=== PATIENT | female | born 1960 | race Caucasian/White ===

== ENCOUNTER 2021-07-27 09:04 | Emergency (ER) | payer OTHER, SELFPAY ==
[2021-07-27] VITALS (44 sets, daily range): BP systolic 100–141; BP diastolic 48–126; PULSE 55–102; RESP 4–23; TEMP 36; O2SAT 97–100
--- NOTE | 2021-07-27 09:15 | RT.EKG_ITS ---
APPROVED REPORT Exam: Resting ECG Reason for Exam: CHEST PAIN Patient Location: E HR:63 bpm ECG Measurements Heart Rate 63 AXIS IN 116 P 42 QRSd 89 QRS 78 QT 395 T 51 QTc 403 Conclusion Sinus rhythm...normal P axis, V-rate 60- 99 sinus rhtyhm, normal axis, normal intervals, non ischemic
[2021-07-27 09:50] LABS: Abs Immature Grans 0.02 10^3/uL (0.0-0.06); Absolute Basophil Count 0.04 10^3/uL (0.0-0.2); Absolute Eosinophil Count 0.03 10^3/uL (0.0-0.7); Absolute Lymphocyte Count 1.45 10^3/uL (1.2-3.4); Absolute Neutrophil Count 4.99 10^3/uL (1.2-6.7); Basophils % 0.6; Eosinophils % 0.4; HCT 41.2 % (36.0-46.0); HGB 14.2 g/dL (11.2-15.7); Immature Grans % 0.3; Lymphocytes % 20.9; MCH 29.8 pg (27.0-33.0); MCHC 34.5 % (32.0-36.0); MCV 87 fL (80-95); MPV 10.3 fL (8.0-11.0); Monocytes % 5.8; Platelet Count 243 10^3/uL (130-400); RBC 4.76 10^6/uL (3.93-5.22); RDW 12.6 % (11.7-14.6); RDW-SD 39.9 fL; WBC 6.93 10^3/uL (4.4-10.8)
--- NOTE | 2021-07-27 10:01 | ED.GENADUL_ITS ---
Discharge Plan Disposition Patient Disposition: HOME Condition: Improving Discharge Details Clinical Impression: Acute left-sided thoracic back pain Primary Care Provider: Lupe Iglesias ED Provider: Gurmeet Morales Home Meds and New Rx's Prescriptions: New diclofenac sodium 3 % gel 1 applic topical BID PRN (Reason: pain) Qty: 100 1RF Discharge Instructions Instructions: Back Pain (ED) Additional Instructions: If you have any new or significant worsening of symptoms please feel free to return to the emergency department for reassessment and further evaluation. You may use acetaminophen [id number] just take as instructed on packaging. You may also consider use of lidocaine cream. If not improving in the next week please follow-up with your primary care provider for reassessment. Referrals: Lupe Iglesias [Primary Care Provider] - (As needed for reassessment or if not improving) Discharge Data Discharge Date/Time-TO BE ENTERED AT DEPARTURE: 07/27/21 14:27 Medical Decision Making Patient presenting to the emergency department for chief complaint of back and c hest discomfort. She states that pain is most Gurvinder underneath her left shoulder blade and radiates around to the anterior aspect of the left chest. Patient denies any injury or trauma, reproducible pain, fever chills, cough or shortness of breath. Patient does state significant family history of [place] but denies any personal history. Patient does state history of gastric sleeve and has had poor diet recently causing some heartburn and GERD but this has not been treated by her normal medications or as needed Tums. Physical exam is unremarkable for any reproducible pain, no signs of rash or zoster, no pain with palpation of the thorax, normal cardiac and respiratory exam. We will plan on performing standard cardiac work-up including troponins, EKG, D-dimer, and chest x-ray. Please see physician interpretation for review of EKG but patient is in sinus rhythm with a rate of 63 and per my evaluation shows no acute signs of ischemia. Review of labs show a normal CBC, slightly low potassium at 3.3 so we will give oral potassium, otherwise nondiagnostic CMP, initial troponin undetectable. Patient reassessed and did state some reproducible neck pain. Patient did have discomfort with palpation of the trapezius muscle of the left side, we will still plan on checking second troponin but will plan on giving Toradol and lidocaine patch to see if this helps. Second troponin is negative and patient reassessed and does state not full resolution but improvement of symptoms. Suspect occult musculoskeletal tissue to the left posterior thorax. Encouraged continued use of NSAIDs and following up with primary care provider for reassessment. Did discuss with patient further cardiac testing as needed such as outpatient stress test or return to the emergency department for any new or significant worsening of symptoms. Given chest and back pain did discuss with patient CTA imaging but at this time I have low suspicion for aortic aneurysm given that patient's blood pressure is well within normal limits, normal chest x-ray, negative D-dimer, no significant cardiac history or genetic abnormality that would be concerning for this.This patient was evaluated during a time of global shortage of iodinated contrast media. Based on guidance from the [employer], best practices, and local institutional approaches an alternative path for evaluating and managing the patient may have been employed in order to provide optimal care during this shortage. The current situation has been discussed with the patient. After discussion of diagnosis and plan of care patient has no further needs, questions, or concerns and states clear understanding to return to the emergency department for any worsening symptoms. This documentation was generated using [employer] dictation system, please disregard any oddities of phrase or misspellings. Imaging Data Radiologic Study: Radiologist's impression: MEDIASTINUM: Normal. HEART: Normal. PULMONARY VASCULATURE: Normal. LUNGS: Clear. PLEURAL SPACE: No pleural effusion or pneumothorax. BONE:Within normal limits for the patient's age. OTHER FINDINGS:Normal. IMPRESSION: No acute pulmonary findings. Lab Data Lab results reviewed: Yes I reviewed the patient's lab results. HPI General Mode of arrival: ambulatory . Date/Time Provider Initiated Documentation: 07/27/21 09:12 . Limitations to Documentation: no limitations . Information obtained by: patient . History of Present Illness 60 year old F presents to the emergency department with the chief complaint of Ches/back pain, described as moderate, with intensity rated at 6. Quality is described as burning and aching, and is localized to the back. Patient reports radiation to (chest). Patient started experiencing this day(s) (2) and it has been constant. No relieving factors improve symptom(s), No exacerbating factors reported . Patient notes no other symptoms.. Patient did receive the following treatments prior to arrival, NSAID and other (tums) Related Data Home Medications Medication Instructions Recorded Confirmed diclofenac sodium 3 % topical gel 1 applic topical BID PRN pain #100 06/10/22 grams Previous Rx's Medication Instructions Recorded diclofenac sodium 3 % topical gel 1 applic topical BID PRN pain #100 07/27/21 grams General Stated Complaint: Chest Pain ANGEL LUIS: 3 Review of Systems Constitutional Constitutional: Denies chills, Denies fever(s) and Denies malaise Cardiovascular Cardiovascular: Reports as per HPI, Reports chest pain, Denies chest pain with activity, Denies syncope, Denies irregular heart rhythm, Denies palpitations and Denies dyspnea Respiratory Respiratory: Denies cough, Denies hemoptysis and Denies dyspnea Gastrointestinal Gastrointestinal: Denies abdominal pain, Denies nausea and Denies vomiting Musculoskeletal Musculoskeletal: Reports back pain (left shoulder blade) Neurologic Neurologic: Denies syncope Psychiatric Psychiatric: Denies anxiety Endocrine Endocrine: Denies cold intolerance, Denies heat intolerance and Denies palpitat ions PFSH All Active Problems (Updated 07/27/21 @ 14:08 by Gurmeet Morales NP) Acute left-sided thoracic back pain (Acute) Social History Smoking/Tobacco Use Status: Never Smoking risk assessment performed?: Yes Alcohol Intake: never Drug use: Rarely Substance use type: does not use Do you feel safe at home: Yes Do you feel safe in your relationship?: Yes Exam Const General: cooperative, healthy appearing, comfortable, no acute distress, not diaphoretic and not ill appearing Nutritional Appearance: average body habitus Orientation: alert, awake and oriented x3 Limitations: mental status not altered Neck Neck: normal visual inspection, full ROM, trachea midline, supple and no anterior neck swelling Thyroid: thyroid normal Carotids: normal carotid upstroke and no bruits Chest Chest: normal inspection of the chest Resp Effort & Inspection: normal respiratory effort and able to speak in complete sentences Auscultation: clear to auscultation bilaterally Cardio Jugular venous pressure: no JVD Palpation: normal PMI Rate: regular rate Rhythm: regular rhythm Heart Sounds: S1 normal, S2 normal, no click, no gallops, no murmurs and no rubs Bruits: no abdominal aortic bruits and no carotid bruits Pulses: radial pulses present bilaterally 2+ GI Inspection: normal to inspection Palpation: soft, no aortic enlargement, no pulsatile masses and nontender Auscultation: normal bowel sounds Back/Spine/Pelvis Thoracic/Lumbar Spine: No paraspinal tenderness and No thoracic spinal tenderness Skin General skin exam: no rashes or lesions noted Neuro General: patient alert, patient awake, patient oriented x3, tone normal and moves all extremities Course Vital Signs Vital signs: Vital Signs Temperature 36 C L 07/27/21 09:10 Pulse 67 07/27/21 09:10 Respiratory Rate 18 07/27/21 09:10 Blood Pressure 123/76 07/27/21 09:10 Pulse Oximetry 99 07/27/21 09:10 Temperature 36 C L 07/27/21 09:10 Temperature Source Temporal Artery Scan 07/27/21 09:10 Pulse 67 07/27/21 09:10 Respiratory Rate 18 07/27/21 09:10 Blood Pressure 123/76 07/27/21 09:10 Blood Pressure Position Sitting 07/27/21 09:10 Pulse Oximetry 99 07/27/21 09:10 Oxygen Delivery Method Room Air 07/27/21 09:10 Oxygen Flow Rate 0 07/27/21 09:10 Lab/Test Results Lab/Test Results: Laboratory Tests Range/Units 07/27/21 09:35 WBC (4.4-10.8) 10^3/uL 6.93 RBC (3.93-5.22) 10^6/uL 4.76 Hgb (11.2-15.7) g/dL 14.2 Hct (36.0-46.0) % 41.2 MCV (80-95) fL 87 MCH (27.0-33.0) pg 29.8 MCHC (32.0-36.0) % 34.5 RDW (11.7-14.6) % 12.6 Plt Count (130-400) 10^3/uL 243 MPV (8.0-11.0) fL 10.3 Immature Gran % 0.3 Neutrophils % 72.0 Lymphocytes % 20.9 Monocytes % 5.8 Eosinophils % 0.4 Basophils % 0.6 Nucleated RBC % (0.0-0.3) % 0.0 Absolute Neutrophils (1.2-6.7) 10^3/uL 4.99 Absolute Lymphocytes (1.2-3.4) 10^3/uL 1.45 Absolute Monocytes (0.1-0.8) 10^3/uL 0.40 Absolute Eosinophils (0.0-0.7) 10^3/uL 0.03 Absolute Basophils (0.0-0.2) 10^3/uL 0.04
[2021-07-27 10:03] LABS: ALT 19 U/L (14-59); AST 12 U/L (15-37); Alkaline Phosphatase 90 U/L (46-116); Anion Gap 8.2 mmol/L (3-11); BUN 13 mg/dL (7-18); Bilirubin, Total 0.6 mg/dL (0.2-1.0); CO2 30.8 mmol/L (21.0-32.0); CREATININE 0.7 mg/dL (0.55-1.02); Calcium 8.9 mg/dL (8.5-10.1); Chloride 106 mmol/L (98-107); Glucose 114 mg/dL (74-106); Magnesium 1.8 mg/dL (1.8-2.4); Potassium 3.3 mmol/L (3.5-5.1); Sodium 145 mmol/L (136-145); Total Protein 7.2 g/dL (6.4-8.2); Troponin I < 50 ng/L (<or=60)
[2021-07-27 10:17] LABS: D-Dimer 309 ng/mlFEU (<500)
--- NOTE | 2021-07-27 10:36 | DI.RAD_ITS ---
Exam(s) XR CHEST 2V PA LATERAL EXAM: XR CHEST 2V PA LATERAL CLINICAL HISTORY: chest pain TECHNIQUE: 2D digital imaging was performed of the chest. Two images were obtained. PA and lateral views were obtained. COMPARISON: No exams were available for comparison FINDINGS: MEDIASTINUM: Normal. HEART: Normal. PULMONARY VASCULATURE: Normal. LUNGS: Clear. PLEURAL SPACE: No pleural effusion or pneumothorax. BONE:Within normal limits for the patient's age. OTHER FINDINGS:Normal. IMPRESSION: No acute pulmonary findings. DATA REPOSITORY: RADIATION DOSE DELIVERED:
[2021-07-27] MEDS: Lidocaine 5% Patch 1 PATCH TP (12:23)
[2021-07-27] MEDS: POTASSIUM CHLORIDE 20 MEQ, POTASSIUM CHLORIDE 10 MEQ 30 MEQ PO (12:23)
[2021-07-27] MEDS: Ketorolac 15 MG/ML VIAL IVP (12:24)
[2021-07-27] MEDS: Normal Saline Flush 10 ML SYR IVP (12:24)
[2021-07-27 13:29] LABS: Troponin I < 50 ng/L (<or=60)
== END 2021-07-27 14:27 | disposition home or self-care (01) ==
PROVIDERS: Emergency Provider Nurse Practitioner Family; PCP Physician Assistant Medical
DX: M54.6 Pain in thoracic spine (principal); R07.9 Chest pain, unspecified; E87.6 Hypokalemia
CPT/HCPCS: 36415; 80053; 87635; 93005; 96374; 99284; 71046; 83735; 84484; 85025; 85379; 93010; J1885